=== PATIENT | male | born 1970 ===

== ENCOUNTER 2018-02-25 12:54 | Emergency (ER) | payer OTHER ==
[~2018-02-25] VITALS: Ht 170.2 cm; Wt 95.3 kg
[2018-02-25] MEDS ORDERED: TOPROL XL50 M1 (13:09)
[2018-02-25] MEDS ORDERED: COZAAR50 MG (13:09)
== END 2018-02-25 15:45 | disposition home or self-care (01) ==
LOC: ER 12:54
DX: I10 Essential (primary) hypertension (principal)